=== PATIENT | female | born 1955 | race Two or more races ===

== ENCOUNTER 2017-06-04 19:14 | Emergency (ER) | payer OTHER ==
[2017-06-04 19:29] VITALS: BP 159/103; PULSE 71; TEMP 98.2; BMI 29.8
--- NOTE | 2017-06-04 19:29 | PDOC ---
Rapid Medical Evaluation Time Seen by Provider: 06/04/17 19:23 Medical Evaluation: 06/04/17 19:23 Pt c/o: elevated bp, no hx of elevated BP, took her BP in her [employer]INER class and had checked yesterday which was elevated 190/110 and today went to pharmacy today and was 160-/100. also states earlier today had mild throbbing sensation to left side of head also with blurry vision which resolved Pt on brief exam: 150/103 Pt ordered for : EKG, cbc, comp , ua, cxr Pt to proceed to the ED
[2017-06-04] MEDS ORDERED: VALSARTAN 40 MG TABLET (FP) PO ONE (20:16)
--- NOTE | 2017-06-04 20:17 | PDOC ---
History of Present Illness - General History Source: Patient Exam Limitations: No Limitations - History of Present Illness Initial Comments: 06/04/17 20:22 Patient is a 62 year old female with no significant past medical history who presents to the ED with complaints of high blood pressure that began yesterday afternoon. Patient reports going to her PMD for a physical and states she was told her blood pressure was found to be 146, with everything else being normal. She reports taking her blood pressure yesterday afternoon and found that her BP was about 190. Patient states taking her BP this afternoon and found that her blood pressure was 176-178, prompting her to come into the ED for further evaluation. Denies chest pain, Sob. Denies nausea, vomiting. Denies fevers, chills. Denies contact with sick individuals, out of state travelling. Denies change in diet, change in appetite. Denies any other symptoms. Allergies: None Social history: No smoking, No alcohol. No illicit drugs. Surgical history: None FamHx: Mother and Sister Alive; HTN. PMD: Not on staff. <Travis Cabrera - Last Filed: 06/04/17 22:06> <Ernestine Choi - Last Filed: 06/05/17 05:06> - General Chief Complaint: Blood Pressure Problem Stated Complaint: BLOOD PRESSURE PROBLEM Time Seen by Provider: 06/04/17 19:23 Past History <Travis Cabrera - Last Filed: 06/04/17 22:06> - Past Medical History COPD: No Other medical history: Pt denies - Suicide/Smoking/Psychosocial Hx Smoking History: Never smoked Have you smoked in the past 12 months: No Information on smoking cessation initiated: No Hx Alcohol Use: No Drug/Substance Use Hx: No Substance Use Type: None <Ernestine Choi - Last Filed: 06/05/17 05:06> - Past Medical History Allergies/Adverse Reactions: Allergies Allergy/AdvReac Type Severity Reaction Status Date / Time No Known Allergies Allergy Verified 06/04/17 19:25 Home Medications: Ambulatory Orders Valsartan [Diovan] 40 mg PO DAILY #30 tablet 06/04/17 Review of Systems - Review of Systems Able to Perform ROS?: Yes Comments:: 06/04/17 20:22 GENERAL/CONSTITUTIONAL: No fever or chills. No weakness. HEAD, EYES, EARS, NOSE AND THROAT: No change in vision. No ear pain or discharge. No sore throat. CARDIOVASCULAR: No chest pain or shortness of breath. RESPIRATORY: No cough, wheezing, or hemoptysis. GASTROINTESTINAL: No nausea, vomiting, diarrhea or constipation. GENITOURINARY: No dysuria, frequency, or change in urination. MUSCULOSKELETAL: No joint or muscle swelling or pain. No neck or back pain. SKIN: No rash NEUROLOGIC: No headache, vertigo, loss of consciousness, or change in strength/ sensation. ENDOCRINE: No increased thirst. No abnormal weight change. HEMATOLOGIC/LYMPHATIC: No anemia, easy bleeding, or history of blood clots. ALLERGIC/IMMUNOLOGIC: No hives or skin allergy. All Other Systems: Reviewed and Negative <Travis Cabrera - Last Filed: 06/04/17 22:06> *Physical Exam - Vital Signs Last Vital Signs Temp Pulse Resp BP Pulse Ox 98.2 F 71 18 159/103 100 06/04/17 19:26 06/04/17 19:26 06/04/17 19:26 06/04/17 19:26 06/04/17 19:26 - Physical Exam Comments: 06/04/17 20:22 GENERAL: Awake, alert, and fully oriented, in no acute distress HEAD: No signs of trauma EYES: PERRLA, EOMI, sclera anicteric, conjunctiva clear ENT: Auricles normal inspection, hearing grossly normal, nares patent, oropharynx clear without exudates. Moist mucosa NECK: Normal ROM, supple, no lymphadenopathy, JVD, or masses LUNGS: Breath sounds equal, clear to auscultation bilaterally. No wheezes, and no crackles HEART: Regular rate and rhythm, normal S1 and S2, no murmurs, rubs or gallops ABDOMEN: Soft, nontender, normoactive bowel sounds. No guarding, no rebound. No masses EXTREMITIES: Normal range of motion, no edema. No clubbing or cyanosis. No cords, erythema, or tenderness NEUROLOGICAL: Cranial nerves II through XII grossly intact. Normal speech, normal gait SKIN: Warm, Dry, normal turgor, no rashes or lesions noted. <Travis Cabrera - Last Filed: 06/04/17 22:06> - Vital Signs Last Vital Signs Temp Pulse Resp BP Pulse Ox 98.2 F 71 18 159/103 100 06/04/17 19:26 06/04/17 19:26 06/04/17 19:26 06/04/17 19:26 06/04/17 19:26 <Ernestine Choi - Last Filed: 06/05/17 05:06> Heart Score/ECG Review - ECG Intrepretation Comment:: 06/04/17 22:06 COmpleted at 20:49:22 Normal Sinus rhythm Moderate voltage criteria for LVH, may be normal variant Borderline ECG <Travis Cabrera - Last Filed: 06/04/17 22:06> ED Treatment Course - LABORATORY CBC & Chemistry Diagram: 06/04/17 19:51 06/04/17 19:51 - ADDITIONAL ORDERS Additional order review: 06/04/17 19:51 RBC 4.21 MCV 90.5 MCHC 34.6 RDW 12.8 MPV 9.8 Neutrophils % 60.0 Lymphocytes % 32.0 Monocytes % 6.3 Eosinophils % 1.3 Basophils % 0.4 <Travis Cabrera - Last Filed: 06/04/17 22:06> - LABORATORY CBC & Chemistry Diagram: 06/04/17 19:51 06/04/17 19:51 - RADIOLOGY Radiology Studies Ordered: Category Date Time Status HEAD CT WITHOUT CONTRAST [CT] Stat CT Scan 06/04/17 19:46 Ordered <Ernestine Choi - Last Filed: 06/05/17 05:06> Medical Decision Making - Medical Decision Making 06/04/17 20:47 Pt has no PMHx, but over the last couple of weeks she has had 3 episodes of HTN and today her BP is elevated in the ER. I will check basic labs and CXR and EKG, Pt complains of nonspecific headache and she is worried, as her BP was systolic 190 earlier yesterday and 178 today. Pt states that she follows with a doctor at a clinic. When she was there several months ago, her workup was normal and she was told to avoid carbohydrates. Pt will be worked up and started on DIovan. 06/05/17 05:05 Pt will go home with diovan x 30 day supply; labs normal; cxr normal; ekg normal ; Exam normal. Pt feels well and she feels better after diovan. Pt will follow with her PMD and she will bring along her diovan pills. <Ernestine Choi - Last Filed: 06/05/17 05:06> *DC/Admit/Observation/Transfer - Attestations Scribe Attestion: 06/04/17 20:23 Documentation prepared by Travis Cabrera, acting as spanish medical interpreter for Ernestine Choi MD/DO. <Travis Cabrera - Last Filed: 06/04/17 22:06> - Discharge Dispostion Admit: No <Ernestine Choi - Last Filed: 06/05/17 05:06> Diagnosis at time of Disposition: HTN (hypertension) - Discharge Dispostion Disposition: HOME Condition at time of disposition: Improved - Prescriptions Prescriptions: Valsartan [Diovan] 40 mg PO DAILY #30 tablet - Referrals Referrals: Arabella Kinney MD [Primary Care Provider] - - Patient Instructions Printed Discharge Instructions: DI for High Blood Pressure, How to Monitor Your Blood Pressure at Home
[2017-06-04 20:18] LABS: BASO % 0.4 % (0-2.0); EOS % 1.3 % (0-4.5); HEMATOCRIT 38.1 % (32.4-45.2); HEMOGLOBIN 13.2 GM/dL (10.7-15.3); MCH 31.3 pg (25.7-33.7); MCHC 34.6 g/dl (32.0-36.0); MEAN CELL VOLUME 90.5 fl (80-96); MEAN PLT VOLUME 9.8 fl (7.5-11.1); MONO % 6.3 % (3.8-10.2); PLATELET COUNT 189 K/MM3 (134-434); RBC 4.21 M/mm3 (3.60-5.2); RDW 12.8 % (11.6-15.6); WHITE BLOOD COUNT 6.7 K/mm3 (4.0-10.0)
[2017-06-04 20:37] LABS: ALBUMIN 4.1 g/dl (3.4-5.0); ANION GAP 8 (8-16); BILIRUBIN,TOTAL 0.4 mg/dL (0.2-1.0); BLOOD UREA NITROGEN 16 mg/dL (7-18); CALCIUM 8.7 mg/dL (8.5-10.1); CHLORIDE 103 mmol/L (98-107); CO2 27 mmol/L (21-32); CREATININE 0.8 mg/dL (0.55-1.02); GLUCOSE,RANDOM 93 mg/dL (74-106); POTASSIUM 3.7 mmol/L (3.5-5.1); SGOT/AST 14 U/L (15-37); SGPT/ALT 23 U/L (12-78); SODIUM 138 mmol/L (136-145)
[2017-06-04 20:38] LABS: ALK PHOS 116 U/L (45-117)
[2017-06-04] MEDS ORDERED: VALSARTAN 80 MG TABLET (UD) ONE (21:43)
[2017-06-04 22:01] LABS: URINE APPEARANCE CLEAR; URINE BILIRUBIN NEGATIVE (NEGATIVE); URINE BLOOD NEGATIVE (NEGATIVE); URINE COLOR STRAW; URINE GLUCOSE (UA) NEGATIVE (NEGATIVE); URINE KETONE NEGATIVE (NEGATIVE); URINE LEUK ESTERASE 1+ (NEGATIVE); URINE NITRITE NEGATIVE (NEGATIVE); URINE PROTEIN NEGATIVE (NEGATIVE); URINE UROBILINOGEN NEGATIVE mg/dL (0.2-1.0)
[2017-06-04 22:04] LABS: EPI CELLS RARE /HPF (FEW)
--- NOTE | 2017-06-05 10:03 | EKG ---
Test Reason : Blood Pressure : / mmHG Vent. Rate : 070 BPM Atrial Rate : 070 BPM P-R Int : 146 ms QRS Dur : 096 ms QT Int : 398 ms P-R-T Axes : 036 008 037 degrees QTc Int : 429 ms NORMAL SINUS RHYTHM MODERATE VOLTAGE CRITERIA FOR LVH, MAY BE NORMAL VARIANT NO PREVIOUS ECGS AVAILABLE Confirmed by JOSE DANIEL RODRIGUEZ MD ([id number]) on 06/05/2017 10:03:10 AM Referred By: Confirmed By:JOSE DANIEL RODRIGUEZ MD
== END 2017-06-04 23:15 | disposition home or self-care (01) ==
LOC: JER 19:14
DX: I10 Essential (primary) hypertension (principal)
CPT/HCPCS: 36415; 70450-TC; 71046-TC-FY; 80053; 81003; 81015; 85025; 93005; 93010; 99281-25